=== PATIENT | female | born 1940 | race Caucasian/White ===

== ENCOUNTER 2016-09-26 07:33 | Inpatient (IN) | payer MEDICARE, OTHER ==
[2016-09-22 16:42] LABS: HEMATOCRIT 40.5 % (36.0-48.0); HEMOGLOBIN 13.3 g/dL (12.0-16.0)
[2016-09-22 16:52] LABS: BUN (BLOOD UREA NITROGEN) 26 MG/DL (6-23); CALCIUM, SERUM 8.7 MG/DL (8.5-10.4); CHLORIDE, SERUM 108 MMOL/L (96-112); CO2 (CARBON DIOXIDE) 26 MMOL/L (24-34); CREATININE 1.16 MG/DL (0.55-1.02); GFR AFRICAN AMERICAN 53 ML/MIN (>=60); GFR NON AFRICAN AMERICAN 46 ML/MIN (>=60); GLUCOSE, SERUM 98 MG/DL (60-99); POTASSIUM, SERUM 4.1 MMOL/L (3.5-5.3); SODIUM, SERUM 142 MMOL/L (135-148)
--- NOTE | ~2016-09-26 | OP ---
Record Of Operation [facility] [address] [place]. [address] NAME: NAVEEN POLLOCK : 40 STATUS : DIS IN PAT#: [id number] AGE: 75 ADM/REG DATE : 09/26/16 MR#: [id number] REPORT SERV DATE: 09/30/16 DICTATED BY: SKINNY TRAN DATE: 09/30/16 REPORT STATUS : Draft TRANSCRIBED BY: MODL DATE: 09/30/16 DATE OF PROCEDURE: 09/26/2016 PREOPERATIVE DIAGNOSIS: High-grade left internal carotid artery stenosis. POSTOPERATIVE DIAGNOSIS: High-grade left internal carotid artery stenosis. PROCEDURE: 1. Left carotid endarterectomy with intraoperative shunt placement and bovine pericardial patch angioplasty. 2. Completion ultrasound. SURGEON: Skinny Tran M.D. CUFF MAKER: Carmine. ANESTHESIA: General endotracheal. ESTIMATED BLOOD LOSS: 150 mL. SPECIMEN: Carotid plaque. DRAINS: Round 15-Mich to the left neck. COMPLICATIONS: None. INDICATION: Ms. Pollock is a pleasant 75-year-old female with recent diagnosis of high-grade left internal carotid artery stenosis on ultrasound and confirmed by CT angiogram. Fortunately, she is asymptomatic from a stroke standpoint. She is recommended for carotid endarterectomy for stroke prevention. DETAILS OF PROCEDURE: After informed consent was obtained, the patient was brought to the operating room and placed in a supine position. After the administration of anesthesia, she was prepped and draped in the usual sterile fashion after intubation. A shoulder roll was placed. A time-out was performed. I commenced the procedure with a left anterior sternocleidomastoid incision. I dissected down through the platysma and subcutaneous tissues with cautery. I identified the internal jugular vein and retracted it laterally. Facial vein was ligated proximally and distally and then divided. Underlying the facial vein, was the carotid bifurcation. This obviously was heavily diseased. After that, we systemically heparinized. I then further exposed the internal and external carotid arteries and encircled with vessel loops. Common carotid artery was encircled with umbilical tape. Vagus and hypoglossal nerves were identified and preserved. I clamped first the internal carotid followed by the common carotid and the external carotid artery after giving the heparin time to circulate. I then performed arteriotomy with 11 blade and extended proximally and distally with Marcus scissors. There was dense heterogeneous plaque throughout the common carotid distally as well as the bifurcation extending into the Record Of Operation [facility] [address] [place]. [address] NAME: NAVEEN POLLOCK : 40 STATUS : DIS IN PAT#: [id number] AGE: 75 ADM/REG DATE : 09/26/16 MR#: [id number] REPORT SERV DATE: 09/30/16 DICTATED BY: SKINNY TRAN DATE: 09/30/16 REPORT STATUS : Draft TRANSCRIBED BY: SOLITARIO DATE: 09/30/16 internal carotid artery. Visually there was a very small remaining flow lumen approximately 80% and 90% stenosis. There was no ulceration or fresh thrombus. After that, a 10-[employer] shunt was first placed distally into the internal carotid artery and then secured proximally in the common carotid artery. There was brisk back-bleeding from the internal carotid. Once the shunt was secured in place, extensive endarterectomy was performed of the distal common carotid artery at the bifurcation of the internal carotid artery. The distal endpoint feathered to a beautiful endpoint. The proximal endpoint was cut flush with Marcus scissors. All remaining debris was removed. I irrigated with heparinized saline. I then performed a patch angioplasty with a bovine pericardial patch. This was sewn in place with running 6-0 Prolene. Prior to completing the suture line, the shunt was removed. I forward flushed and back-flushed, and reclamped the arteries. I again irrigated with heparinized saline. I completed the suture line. Flow was restored from the common carotid to the external carotid artery for further flushing leaving the internal clamp for several seconds. After that, the internal clamp was removed. The suture line was hemostatic. The artery was obviously pulsatile. The endarterectomy site was examined with a handheld ultrasound. There was no free flap or floating debris. No velocity elevations or turbulent flow. Normal Doppler signals were appreciated in all 3 vessels. After that, we ensured hemostasis. We irrigated with sterile saline. I then placed a round 15-Mich drain by the artery and brought it out the inferior portion of the incision. It was secured to the skin with 2-0 nylon. The platysma was closed with running 2-0 Vicryl. The skin was closed with running 4-0 Monocryl in a subcuticular fashion. Dermabond was then applied. Drain was hooked to bulb suction. The patient tolerated the procedure well with no complications. I was present and participated in the entire case as dictated. While still in the operating room, she was allowed to awaken from anesthesia. She followed commands and moved all four extremities symmetrically. GEORGE/SOLITARIO Skinny Tran M.D. / [id number] CC: Roberto Reilly M.D.
[~2016-09-26 07:33] MED LIST: ASAB PO; COREG12 PO; CRESTOR5 MG PO; PRIN20 PO; SYN1 PO; XARELTO20 MG PO
[2016-09-27 04:28] LABS: BASOPHILS 0.1 %; BASOPHILS ABSOLUTE 0.01 10/3/uL (0.0-0.16); EOSINOPHILS 0 %; HEMOGLOBIN 11.8 g/dL (12.0-16.0); IMMATURE GRANULOCYTES 0.1 %; IMMATURE GRANULOCYTES ABSOLUTE 0.01 10/3/uL (0.0-0.11); LYMPHOCYTES ABSOLUTE 0.83 10/3/uL (0.67-4.30); MEAN CORPUS HGB CONC 33.8 g/dL (32.0-36.0); MEAN CORPUSCULAR HEMOGLOB 30.6 pg (26.0-34.0); MEAN CORPUSCULAR VOLUME 90.6 fL (80-100); MEAN PLATELET VOLUME 10.6 fL (9.2-13.0); MONOCYTES 4.2 %; MONOCYTES ABSOLUTE 0.35 10/3/uL (0.21-1.20); NEUTROPHILS 85.6 %; NEUTROPHILS ABSOLUTE 7.09 10/3/uL (2.02-8.40); PLATELET COUNT 150 10/3/uL (150-400); RBC DISTRIBUTION WIDTH 13.2 % (12.0-16.0); WHITE BLOOD CELLS 8.3 10/3/uL (4.5-10.5)
[2016-09-27 04:29] LABS: HEMATOCRIT 34.9 % (36.0-48.0); MANUAL DIFF NO %; RED CELL COUNT 3.85 10/6/uL (4.0-5.6)
[2016-09-27 04:44] LABS: BUN (BLOOD UREA NITROGEN) 29 MG/DL (6-23); CHLORIDE, SERUM 111 MMOL/L (96-112); CO2 (CARBON DIOXIDE) 24 MMOL/L (24-34); CREATININE 1.28 MG/DL (0.55-1.02); GFR AFRICAN AMERICAN 47 ML/MIN (>=60); GFR NON AFRICAN AMERICAN 41 ML/MIN (>=60); POTASSIUM, SERUM 4.3 MMOL/L (3.5-5.3); SODIUM, SERUM 142 MMOL/L (135-148)
[2016-09-27 04:58] LABS: GLUCOSE, SERUM 147 MG/DL (60-99)
[2016-09-27] MEDS ORDERED: PCET PO (14:13)
== END 2016-09-27 14:51 | disposition home or self-care (01) | DRG 39 ==
LOC: SDC/OF 07:33 → CVICU 17:00
PROVIDERS: Surgery
PROC: 03CL0ZZ Extirpation of Matter from Left Internal Carotid Artery, Open Approach (ICD-10-PCS; 2016-09-26)
PROC: 03CJ0Z6 (ICD-10-PCS; principal; 2016-09-26 10:00)
DX: I65.23 Occlusion and stenosis of bilateral carotid arteries (principal); I48.2 Chronic atrial fibrillation; I10 Essential (primary) hypertension; Z88.0 Allergy status to penicillin; Z79.01 Long term (current) use of anticoagulants; Z79.899 Other long term (current) drug therapy; K13.0 Diseases of lips; E78.00 Pure hypercholesterolemia, unspecified; I12.9 Hypertensive chronic kidney disease with stage 1 through stage 4 chronic kidney disease, or unspecified chronic kidney disease; N18.2 Chronic kidney disease, stage 2 (mild); E78.2 Mixed hyperlipidemia; Z90.710 Acquired absence of both cervix and uterus; Z98.890 Other specified postprocedural states; Z82.49 Family history of ischemic heart disease and other diseases of the circulatory system; Z83.3 Family history of diabetes mellitus
CPT/HCPCS: 80048; 83735; 85014; 85018; 85025; 87641; 88304; 88311; 93005; A9270-GY; C1768; J0690; J2270; J2370; J2405; J2710; J3010